=== PATIENT | male | born 1960 | race Two or more races ===

== ENCOUNTER 2024-07-02 15:50 | Emergency (ER) | payer OTHER ==
[~2024-07-02] VITALS: Ht 170.2 cm; Wt 77.5 kg
[2024-07-02 15:50] VITALS: BP 0/0; PULSE 0; RESP 0; TEMP 96.8; O2SAT 0
[2024-07-02] MEDS ORDERED: EPINEPHrine HCL 1 MG/10 ML SYRG IV ONE (15:51)
--- NOTE | 2024-07-02 16:04 | ED.PDOC ---
History of Present Illness HPI Comments This is a 58-year-old male who comes in with chief complaint of cardiopulmonary arrest. The patient was at home according to the paramedics and called 911 secondary to having some chest pain. While the patient was on the phone with a dispatcher, he became somewhat altered and then had some snoring. The disp atcher could not communicate with him at that point and they went ahead and sent the paramedics. When the paramedics arrived, they found the back door open and they found the patient on the ground in full arrest. They are estimating that a total of 45 minutes had passed between the call and the arrival to the emergency department's. During that time, the patient was in ventricular fibrillation and was shocked 5 times. The patient was also given epinephrine x5. They could not find any medications on scene but they did find a CPAP machine. The paramedics stated that the home looked in order but there was no one there. When they were leaving, the patient's brother arrived but they were not able to communicate with him as they were transporting the patient to our facility. Time Seen by MD: 15:55 Reviewed Notes: Nurses Notes, Cable Installation Technician Notes, Medications, Allergies (Unknown allergies) Allergies: Coded Allergies: UNOBTAINABLE (Unverified , 07/02/24) CPR Information Source: Emergency Med Personnel Mode of Arrival: EMS Severity: Severe Timing: Other (Unknown actual time of arrest) Duration: Since onset Prehospital treatment: 12 Lead EKG, Accucheck (329), Metal Framer, CPR, IVF, Other (Epinephrine x5, defibrillation x5) Associated signs and symptoms There was no evidence of foul play or trauma. Past Medical History PAST MEDICAL HISTORY: HTN Surgical History: Denies all surgeries Family History Family History: Reviewed,noncontributory to illness Social History Smoker: Non-Smoker Alcohol: Denies ETOH Use Drugs: Denies Drug Use Lives In: Home Constitutional: denies: chills, diaphoresis, fatigue, fever, malaise, sweats, weakness, others EENTM: denies: blurred vision, double vision, ear bleeding, ear discharge, ear drainage, ear pain, ear ringing, eye pain, eye redness, hearing loss, mouth pain, mouth swelling, nasal discharge, nose bleeding, nose congestion, nose pain, photophobia, tearing, throat pain, throat swelling, voice changes, others Respiratory: denies: cough, hemoptysis, orthopnea, SOB at rest, shortness of breath, SOB with excertion, stridor, wheezing, others Cardiovascular: reports: chest pain; denies: dizzy spells, diaphoresis, Dyspnea on exertion, edema, irregular heart beat, left arm pain, lightheadedness, palpitations, PND, syncope, others Gastrointestinal: denies: abdomen distended, abdominal pain, blood streaked bowels, constipated, diarrhea, dysphagia, difficulty swallowing, hematemesis, melena, nausea, poor appetite, poor fluid intake, rectal bleeding, rectal pain, vomiting, others Genitourinary: denies: burning, dysuria, flank pain, frequency, hematuria, incontinence, penile discharge, penile sore, pain, testicle pain, testicle swelling, urgency, others Neurological: denies: dizziness, fainting, headache, left sided numbness, left sided weakness, numbness, paresthesia, pre-existing deficit, right sided numbness, right sided weakness, seizure, speech problems, tingling, tremors, weakness, others Musculoskeletal: denies: back pain, gout, joint pain, joint swelling, muscle pain, muscle stiffness, neck pain, others Integumetry: denies: bruises, change in color, change in hair/nails, dryness, laceration, lesions, lumps, rash, wounds, others Allergic/Immunocompromised: denies: Difficulty Healing, Frequent Infections, Hives, Itching, others Hematologic/Lymphatic: denies: anemia, blood clots, easy bleeding, easy bruising, swollen glands, others Endocrine: denies: excessive hunger, excessive sweating, excessive thirst, excessive urination, flushing, intolerance to cold, intolerance to heat, unexplained weight gain, unexplained weight loss, others Psychiatric: denies: anxiety, bipolar disorder, depression, hopeless, panic disorder, schizophrenia, sleepless, suicidal, others Physical Exam General Appearance: Severe Distress HEENT: Other (Pupils fixed and mid-range, endotracheal tube in place) Neck: Supple Respiratory: Other (The patient was being mechanically ventilated) Cardiovascular: Other (Asystole) Breast Exam: Deferred Gastrointestinal: No Organomegaly, Soft Genitalia: Deferred Pelvic: Deferred Rectal: Deferred Extremities: No pedal edema, Other (Pulseless) Musculoskeletal : Apperance: Normal Neurologic: Other (GCS of three) Cerebellar Function: Unable to Test Reflexes: Normal Skin: Dry, Pallor, Warm Lymphatic: No Adenopathy Was a procedure done? Was a procedure done?: No Differential Dx Considerations may include: Cardiopulmonary arrest, generalized weakness, electrolyte imbalance X-Ray, Labs, Meds, VS Vital Signs Date Time Temp Pulse Resp B/P (MAP) Pulse Ox O2 Delivery O2 Flow Rate FiO2 07/02/24 15:50 98.1 0 0 0/0 (0) 0 At this time, we did speak with the family and they are aware of the patient's expiration. They stated that the patient only has a history of hypertension and was compliant with his medications and his doctors follow up. Images Reviewed?: Images reviewed and evaluated by me Time of 1ST Reevaluation: 16:38 Reevaluation 1ST: Unchanged Patient Education/Counseling: Other (The patient was ) Family Education/Counseling: Diagnosis, Treatment, Prognosis Departure 1 Departure Time of Disposition: 16:39 Impression: Primary Impression: Cardiopulmonary arrest Disposition: 20 Condition: Other () Critical Care Note Critical Care Time?: No Stability Stability form required: No Heart Score Heart Score: Heart Score Response (Comments) Value History N/A 0 EKG N/A 0 Age N/A 0 Risk Factors N/A 0 Troponin N/A 0 Total 0 RUDI KARIMI MD Jul 02, 2024 16:04
--- NOTE | 2024-07-02 17:12 | RESUS ---
CODE BLUE ASSESSSMENT History of Events History of Events: PATIENT BROUGHT IN BY EMS WITH CPR IN PROGRESS WITH MARCELLO. PER EMS PATIENT CALLED 911 FOR CHEST PAIN AND THEN WENT UNRESPONSIVE THEN SNORING RESPIRATIONS WITH THE DISPATCHER. EMS ARRIVED AND WENT THROUGH OPEN BACK DOOR AND FOUND PATIENT INSIDE THE HOUSE UNRESPONSIVE, APNEIC AND PULSELESS. PATIENT WAS ALONE. FAMILY "BROTHER" ARRIVED WHEN EMS STARTED TRANSPORTING PATIENT. UPON ARRIVAL PATIENT DOWN TIME 45 MINUTES. SEE EMS TREATMENT. ON ARRIVAL PATIENT MADHU VALIENTE Initial Information Date: Jul 02, 2024 Time: 15:50 Location of Arrest: In Field Arrest Witnessed: No CPR started initial time: 15:20 CPR started by whom: EMS Last seen well: UNKNOWN Pre-Hospital Care: ACLS Type of arrest: Cardiac, Respiratory, Adult, Unwitnessed Spontaneous Respirations: No Pulse Present: No Monitoring: Pulse Oximetry Crash Cart Opened and Supplies: Yes Airway Ventilation Breathing at Onset: Assisted Oxygen Delivery Method: Ambu-Bag Time of first Assisted Ventila: 15:20 Artificial Ventilation: Bag/Endo tube Intubation Size: 7.0 cuffed Intubated by: EMS Intubation Attempts: 1 Intubated orally: Yes Intubated Nasaly: No Confirmation: Auscultation, Exhaled CO2 Circulation Circulation #1: Time: 15:52 Pulse Rate (adult): 0 Circulation Comment: ASYSTOLE Circulation #2: Time: 15:54 Pulse Rate (adult): 0 Circulation Comment: ASYSTOLE Circulation #3: Time: 15:57 Pulse Rate (adult): 0 Circulation Comment: ASYSTOLE Procedure - IV Procedure - IV : IV Side: Left IV Location: Antecubital IV Catheter Type: Saline Lock IV Placed: Pre-Hospital IV Gauge: 18 IV Line Care: Saline Flush Procedure - Intraosseous Site of Intraosseous: Tibia jared-medial Intraosseous inserted by: EMS Medications & Response Medications and Responses #1: Medication Time: 15:52 ADULT Medications Given ADULT: Epinephrine 1 mg Route of Administration: IV EKG Rhythm: Asystole Medications and Responses #2: Medication Time: 15:53 ADULT Medications Given ADULT: Sodium Bacarbinate 50 meq Route of Administration: IV EKG Rhythm: Asystole Medications and Responses #3: Medication Time: 15:54 ADULT Medications Given ADULT: Sodium Bacarbinate 50 meq Route of Administration: IV EKG Rhythm: Asystole Medications and Responses #4: Medication Time: 15:55 ADULT Medications Given ADULT: Epinephrine 1 mg Route of Administration: IV EKG Rhythm: Asystole Nurses Notes [place] Coma Scale Eye Opening: None (1) [place] Coma Scale Verbal: None (1) [place] Coma Scale Motor: None (1) [place] Total: 3 Pupil Reaction: Non Reactive Bedside Blood Glucose: 329 EKG Rhythm: Asystole Time Code Ended Time Code Ended: 15:58 Post Arrest Status: Outcome of code: Unsuccessful Patient pronounced by: DR KARIMI Time patient pronounced: 15:58 Family notified: Yes Code Team Present: JASVIR FALCON ERT DR PASCAL KEN, RN NATALIE, RN CLEM, RN SERENA HOLCOMB Jul 02, 2024 17:12
== END 2024-07-02 18:31 ==
LOC: ER 15:50 → EDUNIT# 15:53 → EDBD 15:53 → ER 18:31
DX: I46.9 Cardiac arrest, cause unspecified (principal); I10 Essential (primary) hypertension
CPT/HCPCS: 92950; 99285; J0171